=== PATIENT | female | born 1940 | race Caucasian/White ===

== ENCOUNTER → 2016-12-22 | Outpatient (CLI) | payer MEDICARE, OTHER ==
[2016-12-22 10:24] LABS: AUTOMATED NEUTROPHIL # 3.3 TH/MM3 (1.8-7.7); BASOPHIL % 0.8 % (0.0-2.0); EOSINOPHIL # 0.2 TH/MM3 (0-0.4); EOSINOPHIL % 3.2 % (0.0-4.0); HEMATOCRIT 39.8 % (35.0-46.0); HEMO FLAGS DIFF FINAL; LYMPH % 27.3 % (9.0-44.0); LYMPHOCYTE # 1.6 TH/MM3 (1.0-4.8); MEAN CORPUSCULAR HEMOGLOBIN 30.1 PG (27.0-34.0); MEAN CORPUSCULAR HGB CONC 33.8 % (32.0-36.0); MONO % 12.1 % (0.0-8.0); NEUT % 56.6 % (16.0-70.0); PLATELET COUNT 216 TH/MM3 (150-450); RED BLOOD COUNT 4.47 MIL/MM3 (4.00-5.30); RED CELL DISTRIBUTION WIDTH 13.5 % (11.6-17.2); WHITE BLOOD COUNT 5.9 TH/MM3 (4.0-11.0)
[2016-12-22 10:46] LABS: ALT (GPT) 16 U/L (10-53); ANION GAP 9 MEQ/L (5-15); AST (GOT) 13 U/L (15-37); BICARBONATE 27.3 MEQ/L (21.0-32.0); BLOOD UREA NITROGEN 9 MG/DL (7-18); CHLORIDE 105 MEQ/L (98-107); GLOMERULAR FILTRATION RATE 55 ML/MIN (>89); GLUCOSE,FASTING 116 MG/DL (74-99); POTASSIUM 3.6 MEQ/L (3.5-5.1); SODIUM (NA) 141 MEQ/L (136-145)
[2016-12-22 10:56] LABS: ALKALINE PHOSPHATASE 107 U/L (45-117); TOTAL BILIRUBIN ADULT 0.4 MG/DL (0.2-1.0)
== END ==
LOC: PLAB 08:31
PROVIDERS: ATTEND Family Medicine
DX: I95.9 Hypotension, unspecified (principal); R53.83 Other fatigue; R55 Syncope and collapse
CPT/HCPCS: 36415; 80053; 84443; 85025

== ENCOUNTER → 2017-03-13 | Day surgery (SDC) | payer MEDICARE, OTHER ==
[~2017-03-13] MED LIST: ACETAMINOPHEN 1000 MG/100 ML 100 ML IV ONE; BUPIVACAINE/EPINEPHRINE 0.25% PF 30 ML VIAL ONE; IOHEXOL 180 MG/ML 20 ML VIAL (for RAD DIAG) OTHER ONE; KETOROLAC TROMETHAMINE 30 MG/ML (IVP) VIAL IV PUSH ONE; LACTATED RINGER'S 1000 ML INJ 1,000 ML ONE; MIDAZOLAM HCL 2 MG/2 ML VIAL ONE; ONDANSETRON HCL 4 MG/2 ML VIAL IV PUSH ONE; PROPOFOL 200 MG/20 ML AMP IV ONE; ROCURONIUM INJ 50 MG/5 ML VIAL IV ONE; ceFAZolin 2 GM PREMIX 50 ML ONE; metroNIDAZOLE 500 MG INJ 100 ML IV ONE
--- NOTE | 2017-03-13 12:59 | TN ---
cc: IGOR COURTNEY M.D. DATE OF SURGERY: 03/13/2017 PREOPERATIVE DIAGNOSIS 1. Calculous cholecystitis. 2. History of dark urine and light stools. POSTOPERATIVE DIAGNOSIS 1. Calculous cholecystitis. 2. History of dark urine and light stools. PROCEDURE Laparoscopic cholecystectomy with intraoperative cholangiography. SURGEON Dr. Igor Courtney. BELL MAKER Araceli Barber, MS III. ANESTHESIA General. INDICATIONS This is a very pleasant 76-year-old woman who a couple of months ago had an episode of light-colored stools and dark urine. She has had chronic intermittent lower abdominal discomfort. Extensive work-up has demonstrated a large gallstone. Recommendations have been made for laparoscopic cholecystectomy with intraoperative cholangiography. INTRAOPERATIVE FINDINGS Gallbladder with inflammatory changes consistent with chronic calculous cholecystitis. Gallbladder removed and sent to pathology. Intraoperative cholangiography performed. This demonstrated no evidence of intraluminal filling defects with easy emptying of contrast into the duodenum. There was normal filling of the proximal hepatic ducts without filling defect. DESCRIPTION OF PROCEDURE IN DETAIL The patient was identified as Jenifer Flores, taken to the operating room and placed in supine position. Sequential compression devices were placed on bilateral lower extremities. Following induction of adequate general endotracheal anesthesia the patient's abdomen was prepped and draped in the usual sterile fashion with Betadine. A timeout procedure was performed. Following completion of the timeout procedure to everyone's satisfaction within the room, local anesthetic was injected at the proposed incision sites. An infraumbilical 2 cm midline incision was carried out with a scalpel and dissection continued posteriorly to the level of the midline infraumbilical fascia. This was retracted anteriorly away from the intra-abdominal contents, incised with a scalpel, and entry into the peritoneal cavity was facilitated with a hemostat. The [employer] balloon Radha trocar is placed in the peritoneal cavity and its balloon inflated with CO2 insufflation until a level of 15 mmHg ensued. The patient was placed in a reverse Trendelenburg position turned to the left and two upper abdominal 5 mm trocars were placed in the peritoneal cavity under direct laparoscopic view after incision of the skin with a scalpel. The gallbladder was immediately identified and was somewhat distended. It was grasped superiorly and anteriorly and inflammatory adhesions to the gallbladder were identified. These were carefully taken down using the Harmonic scalpel, releasing the omentum and the duodenum from the gallbladder. No injury to the duodenum occurred. The gallbladder was then removed from the gallbladder fossa in a dome-down technique using the Harmonic scalpel. The cystic artery was divided with the Harmonic scalpel. The cystic duct was isolated from surrounding tissues and ligated at its junction with 0-PDS Endoloop with the gallbladder. Scissor was used to hemisect the cystic duct. Through a separate small stab incision in the right upper quadrant a percutaneous cholangiogram catheter and introducer was placed. The [employer] cholangiogram catheter with the occluding disk was placed through the introducer. It flushed nicely with saline. It was placed into the cystic duct, the disk activated and saline flushed through without any evidence of distal obstruction. Intraoperative cholangiography was then performed using the C-arm fluoroscopy and full strength Omnipaque contrast. Contrast flowed freely into the duodenum and the proximal hepatic ducts without evidence of filling defect. The cholangiogram catheter was then withdrawn from the cystic duct and a 0-PDS Endoloop placed on the distal cystic duct and the cystic duct divided between the Endoloops. The gallbladder was then removed from the infraumbilical fascial port incision site where the skin and the fascial openings had to be extended to allow for passage of the large stone within the gallbladder. The gallbladder was passed off the field for pathologic evaluation. The right upper quadrant was examined. The cystic duct ligature remained intact. The cystic arterial stump was hemostatic. The gallbladder fossa was clean and dry. Remaining local anesthetic was placed in the right upper quadrant. Trocars and the cholangiogram catheter introducer were removed under direct visualization. There was no evidence of bleeding from these incision sites. The abdomen was actively desufflated through the infraumbilical port which was then removed. The infraumbilical fascial incision was closed with interrupted 0 Vicryl sutures. All incision sites were copiously irrigated with saline. Skin incisions were approximated with 4-0 Monocryl subcuticular sutures. Dressings were applied with Mastisol and half-inch brown Steri-Strips. The patient tolerated the procedure without apparent complication. Sponge, needle and instrument counts were correct at the end of the case. MD JOSEFA Mann/FELIPE /12:38 PM 12:48 PM
--- NOTE | 2017-03-20 10:59 | RADRPT ---
EXAM DATE/TIME: 03/13/2017 11:52 [place] COMPARISON: No previous studies available for comparison. INDICATIONS : Obstruction. FLUORO TIME: .6 minutes IMAGE COUNT: 5 MEDICAL HISTORY : None. SURGICAL HISTORY : None. ENCOUNTER: Initial ACUITY: 1 day PAIN SCORE: Non-responsive. LOCATION: abdomen. PROCEDURE: CHOLANGIOGRAM, OPERATIVE 1. Intraoperative cholangiogram. In the operating room, the cystic duct stump was injected and radiographs obtained. The examination demonstrates normal common duct without retained stones. CONCLUSION: No evidence of common duct stone. Kareem Vázquez MD FACR on March 20, 2017 at 10:57 Board Certified Radiologist. This report was verified electronically.
== END | disposition home or self-care (01) ==
LOC: ESDC 10:20
PROVIDERS: ATTEND Surgery Trauma Surgery
DX: K80.10 Calculus of gallbladder with chronic cholecystitis without obstruction (principal)
CPT/HCPCS: 00790; 47563; 74300; 88304; J0131; J0690; J1885; J2250; J2405; J3010; J7120; Q9965

== ENCOUNTER → 2017-09-22 | Outpatient (CLI) | payer MEDICARE, OTHER ==
[2017-09-25 07:52] LABS: ANA IFA PATTERN ND (()); ANA IFA TITER ND titer (()); ANA SER QL NEGATIVE (NEGATIVE); SCL-70 AB <1.0 NEG AI (<1.0 NEGATIVE); SM AB <1.0 NEG AI (<1.0 NEGATIVE); SM/RNP AB <1.0 NEG AI (<1.0 NEGATIVE)
[2017-09-25 17:51] LABS: DS DNA AB(CRITHIDIA) NEGATIVE (NEGATIVE); DS DNA AB(CRITHIDIA)TITER ND (<1:10)
[2017-09-25 23:52] LABS: RHEUMATOID FACTOR 11 IU/mL (<14)
== END ==
LOC: PLAB 09:51
PROVIDERS: ATTEND Family Medicine
DX: M25.50 Pain in unspecified joint (principal)
CPT/HCPCS: 36415; 86038; 86235; 86255; 86431

== ENCOUNTER 2018-03-07 10:09 | Observation (INO) ==
[2018-03-07 11:04] LABS: Baso % (Auto) 0.7 % (0.0-2.0); Eos # (Auto) 0.1 th/mm3 (0.0-0.4); Eos % (Auto) 1.4 % (0.0-4.0); Hematocrit 41.8 % (35.0-46.0); Lymph # (Auto) 1.5 th/mm3 (1.0-4.8); Lymph % (Auto) 27.6 % (9.0-44.0); Mean Corpuscular HGB Conc 33.4 % (32.0-36.0); Mean Corpuscular Hemoglobin 30.4 pg (27.0-34.0); Mean Corpuscular Volume 90.9 fL (80.0-100.0); Mean Platelet Volume 8.7 fL (7.0-11.0); Mono # (Auto) 0.7 th/mm3 (0.0-0.9); Mono % (Auto) 12.1 % (0.0-8.0); Neut # (Auto) 3.2 th/mm3 (1.8-7.7); Neut % (Auto) 58.2 % (16.0-70.0); Platelet Count 223 th/mm3 (150-450); Red Cell Distribution Width 13.2 % (11.6-17.2); White Blood Count 5.5 th/mm3 (4.0-11.0)
[2018-03-07 11:07] LABS: Chloride 104 meq/L (98-107); Potassium 3.6 meq/L (3.5-5.1); Sodium 139 meq/L (136-145)
[2018-03-07 11:10] LABS: Calcium 8.5 mg/dL (8.5-10.1)
[2018-03-07 11:11] LABS: Albumin 3.8 g/dL (3.4-5.0); Anion Gap 7 meq/L (5-15); Blood Urea Nitrogen 9 mg/dL (7-18); Carbon Dioxide 27.7 meq/L (21.0-32.0); Glucose,Random 99 mg/dL (74-106); Lipase 139 U/L (73-393)
[2018-03-07 11:12] LABS: Activated Partial Thrombo Time 25.8 sec (24.3-30.1); Prothrombin Time 10.1 sec (9.8-11.6)
[2018-03-07 11:14] LABS: Alanine Aminotransferase 16 U/L (10-53); Aspartate Aminotransferase 13 U/L (15-37); Glomerular Filtration Rate 62 mL/min (>89)
[2018-03-07 11:16] LABS: Total Protein 7.9 g/dL (6.4-8.2)
--- NOTE | 2018-03-07 11:16 | XR ---
EXAM DATE: 03/07/2018 10:42 AM EDT AGE/SEX: 77 years / Female INDICATIONS: . Intermittent chest pain since yesterday. CLINICAL DATA: This is the patient's initial encounter. Patient reports that signs and symptoms have been present for 2 days and indicates a pain score of 0/10. MEDICAL/SURGICAL HISTORY: None. Cholecystectomy. COMPARISON: POI, CTA CHEST, 07/31/2014. . FINDINGS: Lungs are hyperinflated with mild interstitial prominence. No significant new focal pleural or parenc hymal opacities. Cardiomediastinal contours are within normal limits. Bony thorax is intact. CONCLUSION: 1. Changes of obstructive pulmonary disease. 2. Otherwise, no acute cardiopulmonary radiographic abnormality. Electronically signed by: Suleman Hager MD 03/07/2018 11:14 AM EDT
[2018-03-07 11:17] LABS: Alkaline Phosphatase 123 U/L (45-117)
[2018-03-07] MEDS ORDERED: Acetaminophen 500 MG Tablet PO PRN (12:05)
--- NOTE | 2018-03-07 12:05 | ED ---
HPI General Chief Complaint: Chest Pain Stated Complaint: chest pain xlast night / sent by pcp Time Seen by Provider: 03/07/18 10:27 Source: patient Mode of arrival: ambulatory Limitations: no limitations History of Present Illness HPI narrative: 77-year-old woman presents emerged from quitting of chest pain, upper chest, radiates into both sides, off-and-on, pinching in nature. Symptoms been ongoing last night. She took some aspirin and then went away she has never had similar symptoms in the past. No history of CAD. No history of VT E. No recent long car rides. No clear association with eating. She is no history of heart disease. She has had a stress test, she thinks the treadmill stress test last year with Dr. Hylton. She states this was done for routine screening. She is a history of "intestinal problems" related to previous endoscopies. She is on probiotics. She otherwise had been feeling generally well. STEMI Alert: No Related Data Home Medications Medication Instructions Recorded Confirmed calcium carbonate-vitamin D3 1 tab PO BID 03/07/18 03/07/18 [Calcium 500 With D] conj estrog-medroxyprogest sneha 1 tab PO DAILY 03/07/18 03/07/18 [Prempro] omega 9-ivh-mbp-fish oil [Fish Oil] 2 cap PO BID 03/07/18 03/07/18 pediatric szdnixnu-lfwz-fjy 1 tab PO DAILY 03/07/18 03/07/18 [Multi-Vitamins with Iron] Allergies Allergy/AdvReac Type Severity Reaction Status Date / Time Ffnkrbv-Icc-Osh Reductase Allergy Severe Hives Verified 03/07/18 10:12 Inhibitor Review of Systems ROS: all other systems reviewed are negative [facility] Medical History Medical History Small bowel problem (Acute) Surgical History Surgical History Hx of cholecystectomy (Acute) Social History Social History Substance History: No History of Abuse Second Hand Smoke Exposure: No Smoking Status: Never smoker How Often Do You Have a Drink Containing Alcohol: Never Recent Travel in [facility] within the Last 8 Weeks: No Recent Out of Country Travel within the Last 8 Weeks: No Immunization History Tetanus Immunization: Unsure Hx Influenza Vaccine This Season: No Exam Narrative Exam Narrative: GENERAL: Well-appearing 77-year-old woman, no acute distress. SKIN: Focused skin assessment warm/dry. HEAD: Atraumatic. Normocephalic. EYES: Pupils equal and round. No scleral icterus. No injection or drainage. ENT: No nasal bleeding or discharge. Mucous membranes pink and moist. NECK: Trachea midline. No JVD. CARDIOVASCULAR: Regular rate and rhythm. No murmur appreciated. RESPIRATORY: No accessory muscle use. Clear to auscultation. Breath sounds equal bilaterally. GASTROINTESTINAL: Abdomen soft, non-tender, nondistended. Hepatic and splenic margins not palpable. MUSCULOSKELETAL: No obvious deformities. No clubbing. No cyanosis. No edema. NEUROLOGICAL: Awake and alert. No obvious cranial nerve deficits. Motor grossly within normal limits. Normal speech. PSYCHIATRIC: Appropriate mood and affect; insight and judgment normal. Course Initial Documented Vital Signs Temperature 98.3 F 03/07/18 10:10 Pulse Rate 100 H 03/07/18 10:10 Respiratory Rate 18 03/07/18 10:10 Blood Pressure 121/77 03/07/18 10:10 Pulse Oximetry 99 03/07/18 10:10 Last Documented Vital Signs Temperature 98.3 F 03/07/18 10:10 Pulse Rate 81 03/07/18 10:51 Respiratory Rate 18 03/07/18 10:51 Blood Pressure 124/75 03/07/18 10:51 Pulse Oximetry 98 03/07/18 10:52 Medical Decision Making MDM Narrative Medical decision making narrative: 77-year-old woman with atypical retrosternal chest pain. She looks well. History is more suggestive of GI etiology. She has never had chest pain with any of her GI symptoms in the past. She looks overall well. Recommend serial cardiac enzymes and consider stress testing. Spoke with Dr. Robi Philippe. Will admit patient to chest pain center. Medical Screen Exam Complete: Yes Emergency Medical Condition: Yes Lab Data Lab results reviewed: Yes I reviewed the patient's lab results. Result diagrams: 03/07/18 10:20 03/07/18 10:20 Lab Results 03/07/18 03/07/18 03/07/18 Range/Units 10:20 10:20 10:20 CBC w Diff Auto diff final WBC 5.5 (4.0-11.0) th/mm3 RBC 4.60 (4.00-5.30) mil/mm3 Hgb 14.0 (11.6-15.3) gm/dL Hct 41.8 (35.0-46.0) % MCV 90.9 (80.0-100.0) fL MCH 30.4 (27.0-34.0) pg MCHC 33.4 (32.0-36.0) % RDW 13.2 (11.6-17.2) % Plt Count 223 (150-450) th/mm3 MPV 8.7 (7.0-11.0) fL Neut % (Auto) 58.2 (16.0-70.0) % Lymph % (Auto) 27.6 (9.0-44.0) % [place] % (Auto) 12.1 H (0.0-8.0) % Eos % (Auto) 1.4 (0.0-4.0) % Baso % (Auto) 0.7 (0.0-2.0) % Neut # (Auto) 3.2 (1.8-7.7) th/mm3 Lymph # (Auto) 1.5 (1.0-4.8) th/mm3 [place] # (Auto) 0.7 (0.0-0.9) th/mm3 Eos # (Auto) 0.1 (0.0-0.4) th/mm3 Baso # (Auto) 0.0 (0.0-0.2) th/mm3 WBC Differential . Differential Comment . PT 10.1 (9.8-11.6) sec INR 1.0 Ratio APTT 25.8 (24.3-30.1) sec Sodium 139 (136-145) meq/L Potassium 3.6 (3.5-5.1) meq/L Chloride 104 (98-107) meq/L Carbon Dioxide 27.7 (21.0-32.0) meq/L Anion Gap 7 (5-15) meq/L BUN 9 (7-18) mg/dL Creatinine 0.88 (0.50-1.00) mg/dL Estimated GFR 62 L (>89) mL/min Random Glucose 99 (74-106) mg/dL Calcium 8.5 (8.5-10.1) mg/dL Total Bilirubin 0.4 (0.2-1.0) mg/dL AST 13 L (15-37) U/L ALT 16 (10-53) U/L Alkaline Phosphatase 123 H (45-117) U/L Troponin I Less than 0.02 L (0.02-0.05) ng/mL Total Protein 7.9 (6.4-8.2) g/dL Albumin 3.8 (3.4-5.0) g/dL Lipase 139 (73-393) U/L Imaging Data Radiologist's impression: Chest X-Ray 03/07/18 10:42 CONCLUSION: 1. Changes of obstructive pulmonary disease. 2. Otherwise, no acute cardiopulmonary radiographic abnormality. Negative ECG Data Attestation: I personally reviewed and interpreted this ECG as follows: Interpretation: Normal sinus rhythm, marked left axis deviation, no acute ischemia. Discharge Plan Discharge Disposition Patient Disposition: 30 Still Patient Physicians Team ED Provider: James Kimbrough Primary Care Provider: Di Dee Rxs /Orders / Referrals /Forms Prescriptions: No Action pediatric aogyohmb-wade-yai [Multi-Vitamins with Iron] Tablet,Chewable 1 tab PO DAILY RF: 0 conj estrog-medroxyprogest sneha [Prempro] 0.3-1.5 mg Tablet 1 tab PO DAILY RF: 0 calcium carbonate-vitamin D3 [Calcium 500 With D] 500 mg(1,250mg) -400 unit Tablet 1 tab PO BID RF: 0 omega 6-bzk-rmt-fish oil [Fish Oil] 60-90-500 mg Capsule,Delayed Release(Dr/Ec ) 2 cap PO BID RF: 0 Discharge Instructions Patient Printed Instructions: Chest Pain (ED) Status ED Status: With Doctor
[2018-03-07] MEDS ORDERED: Morphine Sulfate Inj 2 MG/ML Vial IV.PUSH PRN (13:15)
[2018-03-07 13:26] VITALS: O2SAT 96
[2018-03-07 13:56] LABS: Creatine Kinase 78 U/L (26-192)
--- NOTE | 2018-03-07 14:03 | P.HP ---
History of Present Illness Primary Care Physician: Di Dee MD Chief Complaint: Chest pain History of Present Illness: 77-year-old female with known history of hyperlipidemia, gastroesophageal reflux who presented to hospital for evaluation of chest pain. Patient states that she is in normal state of health until last evening prior to eating dinner when she started developing a very sharp stabbing pain in her chest. Last night she states that it felt as if it was coming from bilateral outside of the chest and radiates to the middle part of her chest lasting for just a second at a time and going away. She states that the pain continued with increase duration between episodes. She did take a baby aspirin last night. She was able to lay down and go to sleep and did not have any symptoms during her sleep. When she woke up this morning she states that she started developing the pain again but only in the middle part of her chest, it was still like a very sharp stabbing "pinching" pain that lasts for a second and then goes away. She went to her prior medical doctor's office for evaluation, they did an EKG at that time and was referred to the hospital for further evaluation since there is nothing more they could do at that time. Patient is followed by Dr. Hylton in outpatient setting. She indicates that she has had a exercise stress test done within the last year and it was normal. Patient denies any radiation to the neck, back, shoulder, arm, denies any nausea, vomiting, diaphoresis, shortness of breath, dyspnea, lightheadedness, dizziness. - Diagnosis (1) Chest pain Review of Systems All other systems reviewed negative except as stated in HPI Cardiovascular: Reports chest pain [facility] - History History Provided By: Patient - Medical History Medical History: Medical History (Last Updated 03/07/18 @ 14:05 by DARLEEN Ewing) History of hyperlipidemia Small bowel problem - Surgical History Surgical History: Surgical History (Last Updated 03/07/18 @ 14:03 by DARLEEN Ewing) History of cataract surgery History of tonsillectomy Hx of cholecystectomy - Family History Family History: Family History (Last Updated 03/07/18 @ 14:02 by DARLEEN Ewing) Father History of colon cancer Mother History of heart disease - Tobacco History Second Hand Smoke Exposure: No Smoking Status: Never smoker - Alcohol History How Often Do You Have a Drink Containing Alcohol: Never - Substance Use History Substance History: No History of Abuse - Travel History Recent Travel in the [place] Within the Last 8 Weeks: No Recent Travel Out of the Country Within the Last 8 Weeks: No - Immunization History Tetanus Immunization: Unsure Hx Influenza Vaccine This Season: No Medications and Allergies Active Medications: Active Medications Acetaminophen (Tylenol) 500 mg PO Q4H PRN PRN Reason: HEADACHE Hydrocodone Bitart/Acetaminophen ([place] 7.5/325) 1 tab PO Q4H PRN PRN Reason: PAIN SCALE 1 TO 7 Aspirin (Aspirin) 325 mg PO DAILY YIN Morphine Sulfate (Morphine Inj) 2 mg IV.PUSH Q4H PRN PRN Reason: PAIN 8-10 Nitroglycerin (Nitrostat Sl) 0.4 mg SL Q5M PRN PRN Reason: CHEST PAIN Sodium Chloride (Ns Flush) 2 ml IV.FLUSH BID YIN Sodium Chloride (Ns Flush) 2 ml IV.FLUSH PRN PRN PRN Reason: FLUSH AFTER USING IV ACCESS Allergies Allergy/AdvReac Type Severity Reaction Status Date / Time Cghdpyz-Pig-Zhi Reductase Allergy Severe Hives Verified 03/07/18 10:12 Inhibitor Home Medications Medication Instructions Recorded Confirmed Type calcium carbonate-vitamin D3 1 tab PO BID 03/07/18 03/07/18 History [Calcium 500 With D] conj estrog-medroxyprogest sneha 1 tab PO DAILY 03/07/18 03/07/18 History [Prempro] omega 2-tew-olj-fish oil [Fish Oil] 2 cap PO BID 03/07/18 03/07/18 History pediatric pbjysnaj-wmma-uqy 1 tab PO DAILY 03/07/18 03/07/18 History [Multi-Vitamins with Iron] Exam Vital signs: Vital Signs 03/07/18 10:10 03/07/18 10:51 03/07/18 10:52 Temperature 98.3 F Pulse Rate 100 H 81 Respiratory Rate 18 18 Blood Pressure 121/77 124/75 Pulse Oximetry 99 96 98 03/07/18 12:05 03/07/18 13:05 Temperature Pulse Rate 74 100 H Respiratory Rate 17 18 Blood Pressure 140/83 130/88 Pulse Oximetry 97 96 Intake & Output 03/06/18 03/07/18 03/07/18 18:59 06:59 18:59 Weight 55 kg Narrative: GENERAL: Well-developed, well-nourished, in no acute distress. alert and orientated HEENT: Head is normocephalic without any lesions or masses noted. Facial features are symmetric. Eyes: Pupils equal round reactive to light. Extraocular muscles are intact. Conjunctivae were clear. Oropharyngeal: Pharynx without any erythema edema. Tongue is midline without deviation. Buccal mucosa is moist without any masses or lesions NECK: Supple without any masses. Trachea midline no deviation. No JVD, no bruits are appreciated CARDIAC: Regular rhythm, regular rate. S1/S2 are heard. No murmurs gallops or rubs. There is palpable tenderness noted over the area in which she is experiencing the discomfort LUNGS: Clear to auscultation bilaterally. No wheeze, rhonchi or rales. No use of accessory muscles on inspiration or expiration. ABDOMEN: Soft, nontender. Nondistended. Bowel sounds heard in all 4 quadrants. No organomegaly or masses. Negative rebound, negative guarding EXTREMITIES: No edema, pulses are equal bilaterally. No cyanosis or clubbing NEUROLOGY: Mood and affect appear appropriate. Cranial nerves II through XII grossly intact. Muscle strength 5/5 in upper and lower extremities bilaterally. Deep tendon reflexes are 2+ in upper and lower extremities bilaterally. Results - Labs CBC & Chem 7: 03/07/18 10:20 03/07/18 10:20 Labs: Laboratory Results - last 24 hr 03/07/18 03/07/18 03/07/18 10:20 10:20 10:20 CBC w Diff Auto diff final WBC 5.5 RBC 4.60 Hgb 14.0 Hct 41.8 MCV 90.9 MCH 30.4 MCHC 33.4 RDW 13.2 Plt Count 223 MPV 8.7 Neut % (Auto) 58.2 Lymph % (Auto) 27.6 [place] % (Auto) 12.1 H Eos % (Auto) 1.4 Baso % (Auto) 0.7 Neut # (Auto) 3.2 Lymph # (Auto) 1.5 [place] # (Auto) 0.7 Eos # (Auto) 0.1 Baso # (Auto) 0.0 WBC Differential . Differential Comment . PT 10.1 INR 1.0 APTT 25.8 Sodium 139 Potassium 3.6 Chloride 104 Carbon Dioxide 27.7 Anion Gap 7 BUN 9 Creatinine 0.88 Estimated GFR 62 L Random Glucose 99 Calcium 8.5 Total Bilirubin 0.4 AST 13 L ALT 16 Alkaline Phosphatase 123 H Total Creatine Kinase Troponin I Less than 0.02 L Total Protein 7.9 Albumin 3.8 Lipase 139 03/07/18 13:30 CBC w Diff WBC RBC Hgb Hct MCV MCH MCHC RDW Plt Count MPV Neut % (Auto) Lymph % (Auto) [place] % (Auto) Eos % (Auto) Baso % (Auto) Neut # (Auto) Lymph # (Auto) [place] # (Auto) Eos # (Auto) Baso # (Auto) WBC Differential Differential Comment PT INR APTT Sodium Potassium Chloride Carbon Dioxide Anion Gap BUN Creatinine Estimated GFR Random Glucose Calcium Total Bilirubin AST ALT Alkaline Phosphatase Total Creatine Kinase 78 Troponin I Less than 0.02 L Total Protein Albumin Lipase - Imaging Impressions Chest X-Ray 03/07/18 10:42 CONCLUSION: 1. Changes of obstructive pulmonary disease. 2. Otherwise, no acute cardiopulmonary radiographic abnormality. Caprini VTE Risk Assessment Caprini VTE Risk Assessment: Moderate/High Risk (score >= 2) Caprini Risk Assessment Model: Point Value = 1 Point Value = 2 Point Value = 3 Point Value = 5 Age 41-60 Minor surgery BMI > 25 kg/m2 Swollen legs Varicose veins or History of unexplained or recurrent spontaneous Oral contraceptives or hormone replacement Sepsis (< 1 month) Serious lung disease, including pneumonia (< 1 month) Abnormal pulmonary function Acute myocardial infarction Congestive heart failure (< 1 month) History of inflammatory bowel disease Medical patient at bed rest Age 61-74 Arthroscopic surgery Major open surgery (> 45 min) Laparoscopic surgery (> 45 min) Malignancy Confined to bed (> 72 hours) Immobilizing plaster cast Central venous access Age >= 75 History of VTE Family history of VTE Factor V Leiden Prothrombin [id number] Lupus anticoagulant Anticardiolipin antibodies Elevated serum homocysteine Heparin-induced thrombocytopenia Other congenital or acquired thrombophilia Stroke (< 1 month) Elective arthroplasty Hip, pelvis, or leg fracture Acute spinal cord injury (< 1 month) Prophylaxis Regimen: Total Risk Factor Score Risk Level Prophylaxis Regimen 0-1 Low Early ambulation 2 Moderate Order ONE of the following: *Sequential Compression Device (SCD) *Heparin 5000 units SQ BID 3-4 Higher Order ONE of the following medications: *Heparin 5000 units SQ TID *Enoxaparin/Lovenox 40 mg SQ daily (WT < 150 kg, CrCl > 30 mL/min) *Enoxaparin/Lovenox 30 mg SQ daily (WT < 150 kg, CrCl > 10-29 mL/min) *Enoxaparin/Lovenox 30 mg SQ BID (WT < 150 kg, CrCl > 30 mL/min) AND/OR *Sequential Compression Device (SCD) 5 or more Highest Order ONE of the following medications: *Heparin 5000 units SQ TID (Preferred with Epidurals) *Enoxaparin/Lovenox 40 mg SQ daily (WT < 150 kg, CrCl > 30 mL/min) *Enoxaparin/Lovenox 30 mg SQ daily (WT < 150 kg, CrCl > 10-29 mL/min) *Enoxaparin/Lovenox 30 mg SQ BID (WT < 150 kg, CrCl > 30 mL/min) AND *Sequential Compression Device (SCD) Assessment and Plan - Assessment (1) Chest pain Code(s): R07.9 - Chest pain, unspecified Status: Acute - Plan Chest pain, atypical -Patient with increased risk factors to include age, hyperlipidemia, family history of heart disease -We will continue ruled patient out for acute coronary event with serial cardiac enzymes and serial EKGs -I contacted the patient's gift basket packer office and the patient has undergone a myocardial perfusion study on 05/23/17. It indicated normal left ventricular function, no signs of ischemia, ejection fraction 63% -I discussed the case with Dr. Hylton, she indicates that if the patient continues to rule out with serial cardiac enzymes and EKGs. Since the patient has already had a negative treadmill myocardial perfusion study within the last year, the patient can be discharged and she will arrange for a CTA of the coronary angiograms in the outpatient setting. -Continue aspirin, nitroglycerin as needed DVT prevention -Sequential compression devices Discharge Planning: Discharge home in stable condition Activity: Ad anand. Diet: Healthy heart diet Medication per medication reconciliation Follow-up with primary medical doctor in 1 week
[2018-03-07 16:36] VITALS: BP 145/74; PULSE 75; RESP 20; TEMP 97
[2018-03-07 17:34] LABS: Creatine Kinase 71 U/L (26-192)
--- NOTE | 2018-03-07 18:13 | ECG ---
Date Performed: 03/07/2018 Time Performed: 13:24:30 PTAGE: 77 years EKG: Sinus rhythm BORDERLINE LEFT AXIS DEVIATION BORDERLINE ECG PREVIOUS TRACING : 03/07/2018 10.15 Since the previous tracing, no significant change noted DOCTOR: Brittaney Akers Interpretating Date/Time 03/07/2018 18:13:06
--- NOTE | 2018-03-07 20:44 | ECG ---
Date Performed: 03/07/2018 Time Performed: 10:15:26 PTAGE: 77 years EKG: Sinus rhythm BORDERLINE LEFT AXIS DEVIATION BORDERLINE ECG NO PREVIOUS TRACING DOCTOR: Brittaney Akers Interpretating Date/Time 03/07/2018 20:42:53
[2018-03-08] MEDS ORDERED: Aspirin 325 MG Tablet PO SCH (09:00)
--- NOTE | 2018-03-08 22:44 | ECG ---
Date Performed: 03/07/2018 Time Performed: 16:55:33 PTAGE: 77 years EKG: Sinus rhythm NORMAL ECG PREVIOUS TRACING : 03/07/2018 13.24 Since the previous tracing, no significant change noted DOCTOR: Brittaney Akers Interpretating Date/Time 03/08/2018 22:44:20
== END 2018-03-07 18:20 | disposition home or self-care (01) ==
LOC: PHEDA 10:09 → PHED 10:09 → PHEDA 13:38 → PH3 13:39
PROVIDERS: ADMIT Hospitalist; ATTEND Hospitalist